=== PATIENT | male | born 1995 | race Hispanic/Latino ===

== ENCOUNTER 2022-01-02 10:28 | Emergency (ER) | payer SELFPAY ==
[~2022-01-02] VITALS: Ht 167.6 cm; Wt 74.8 kg
[2022-01-02 11:51] LABS: BASOPHILS % 0.5 % (0.0-1.0); EOSINOPHILS # (AUTO) 0.1 (0.0-0.4); EOSINOPHILS % 0.7 % (0.0-6.0); HEMATOCRIT 44.9 % (38.2-49.6); HEMOGLOBIN 15.2 g/dL (14.0-18.0); LYMPHOCYTES # (AUTO) 1.9 (1.0-3.2); LYMPHOCYTES % 25.9 % (18.0-39.1); MEAN CORPUSCULAR HEMOGLOBIN 30.4 pg (28-32); MEAN CORPUSCULAR HGB CONC 33.9 g/dL (31-35); MEAN CORPUSCULAR VOLUME 89.8 fL (81-99); MONOCYTES # (AUTO) 0.6 (0.2-0.8); NEUTROPHILS # (AUTO) 4.8 (2.1-6.9); NEUTROPHILS % 64.5 % (38.7-80.0); PLATELET COUNT 282 x10e3/uL (140-360); RED CELL DISTRIBUTION WIDTH 12.1 % (11.7-14.4)
[2022-01-02 12:05] LABS: ALBUMIN 4.1 g/dL (3.5-5.0); ANION GAP 17.5 mmol/L (8-16); CALCIUM 9.6 mg/dL (8.4-10.2); CREATININE, SERUM 0.85 mg/dL (0.72-1.25); POTASSIUM 4.5 mmol/L (3.5-5.1)
[2022-01-02 13:18] VITALS: BP 138/75
== END 2022-01-02 12:55 | disposition home or self-care (01) ==
LOC: EDSEX 10:28 → ER 10:38
DX: R06.02 Shortness of breath (principal); F41.9 Anxiety disorder, unspecified
CPT/HCPCS: 36415; 80053; 85025; 93005; 99283

== ENCOUNTER 2022-09-04 19:22 | Emergency (ER) | payer SELFPAY ==
[~2022-09-04] VITALS: Ht 167.6 cm; Wt 71.7 kg
[2022-09-04 20:13] VITALS: O2SAT 99
[2022-09-04] MEDS ORDERED: CLINDAMYCIN HC300 MG PO (20:16)
[2022-09-04] MEDS ORDERED: ULTRAM 50MG50 MG PO (20:16)
== END 2022-09-04 20:26 | disposition home or self-care (01) ==
LOC: ER 19:40
DX: K08.89 Other specified disorders of teeth and supporting structures (principal)
CPT/HCPCS: 99282